=== PATIENT | female | born 1940 | race Caucasian/White ===

== ENCOUNTER 2017-09-16 16:03 | Observation (INO) | payer MEDICARE, OTHER ==
[~2017-09-16] VITALS: Ht 144.8 cm; Wt 44.2 kg
[2017-09-16 17:51] LABS: HEMATOCRIT 42.9 % (37.0-47.0); HEMOGLOBIN 13.6 g/dl (12.0-16.0); IMMATURE GRANULOCYTES 1.6 % (0.0-1.0); MEAN CELL VOLUME 81.6 fL CALC (80.0-100.0); MEAN CORPUSCULAR HGB 25.9 pG CALC (26.0-32.0); MEAN CORPUSCULAR HGB CONC 31.7 g/L CALC (32.0-36.0); NEUT# 5.24 thou/uL (2.00-7.15); RED BLOOD COUNT 5.26 mill/uL (4.20-5.60); RED CELL DISTRI WIDTH 14.7 % (11.5-15.5)
[2017-09-16 18:03] LABS: ANION GAP 18 (6-22 (CALC)); BUN 20 mg/dL (8-23); BUN/CREATININE RATIO 17 (12-20 (CALC)); CARBON DIOXIDE 21 mmol/l (22-30); CHLORIDE 104 mmol/l (95-108); CREATININE 1.2 mg/dL (0.5-1.0); GFR 43 ML/MIN (>=60 (CALC)); GFR FOR AFR.AMER. 52 ML/MIN (>=60 (CALC)); SODIUM 138 mmol/l (137-146)
[2017-09-16 19:15] VITALS: BP 149/82
[2017-09-16 23:35] VITALS: BP 152/93
[2017-09-17 04:06] VITALS: BP 160/90
[2017-09-17 05:51] LABS: HEMATOCRIT 42.8 % (37.0-47.0); HEMOGLOBIN 13.7 g/dl (12.0-16.0); MEAN CELL VOLUME 82.5 fL CALC (80.0-100.0); MEAN CORPUSCULAR HGB 26.4 pG CALC (26.0-32.0); RED BLOOD COUNT 5.19 mill/uL (4.20-5.60); RED CELL DISTRI WIDTH 14.8 % (11.5-15.5)
[2017-09-17 06:08] LABS: CHOLESTEROL HDL RATIO 3.4 (<4.4 (CALC)); CREATININE 1.1 mg/dL (0.5-1.0); MAGNESIUM 1.8 mg/dL (1.6-2.3); POTASSIUM 4.1 mmol/l (3.5-5.1)
[2017-09-17 08:17] VITALS: BP 178/91
[2017-09-17] MEDS ORDERED: CITALOPRAM10 MG PO (09:21)
[2017-09-17] MEDS ORDERED: B121000 MCG (09:21)
[2017-09-17] MEDS ORDERED: FERR SULFATE325 MG PO (09:21)
[2017-09-17 11:17] VITALS: BP 166/80
[2017-09-17 13:15] VITALS: BP 164/98
[2017-09-17 16:14] VITALS: BP 154/87
[2017-09-17 20:20] VITALS: BP 127/82
[2017-09-18] VITALS (7 sets, daily range): BP systolic 111–142; BP diastolic 70–81
[2017-09-18 05:10] LABS: URINE BILIRUBIN - DIPSTICK NEGATIVE (NEGATIVE); URINE BLOOD DIPSTICK NEGATIVE (NEGATIVE); URINE COLOR YELLOW; URINE GLUCOSE - DIPSTICK 100 mg/dL (NEGATIVE); URINE KETONE TRACE mg/dL (NEGATIVE); URINE LEUK ESTERASE NEGATIVE (NEGATIVE); URINE NITRITE - DIPSTICK NEGATIVE (Negative); URINE PROTEIN - DIPSTICK 100 mg/dL (NEG-TRACE); URINE UROBILINOGEN - DIPSTICK 0.2 E.U./dL (0.2)
[2017-09-18 05:12] LABS: URINE CLARITY CLEAR
[2017-09-18 05:23] LABS: CREATININE 1.2 mg/dL (0.5-1.0); POTASSIUM 4.4 mmol/l (3.5-5.1)
[2017-09-18 05:26] LABS: HEMATOCRIT 43.1 % (37.0-47.0); HEMOGLOBIN 13.8 g/dl (12.0-16.0); MEAN CELL VOLUME 82.9 fL CALC (80.0-100.0); MEAN CORPUSCULAR HGB 26.5 pG CALC (26.0-32.0); RED BLOOD COUNT 5.2 mill/uL (4.20-5.60); RED CELL DISTRI WIDTH 15.3 % (11.5-15.5)
[2017-09-18 05:42] LABS: URINE RBC 0-2 RBC/hpf (0-5); URINE SQUAMOUS EPITHELIAL CELL FEW EPI/hpf (0-FEW); URINE WBC 0-2 WBC/hpf (0-5)
[2017-09-19] VITALS (8 sets, daily range): BP systolic 111–164; BP diastolic 64–96
[2017-09-19] MEDS ORDERED: LEVEMIR100 UNIT/M SC (11:43)
[2017-09-19] MEDS ORDERED: LOPRESSOR25 MG PO (11:43)
[2017-09-19] MEDS ORDERED: GABAPENTIN100 MG PO (11:43)
[2017-09-19] MEDS ORDERED: LOSARTAN POTASS25 MG PO (11:43)
== END 2017-09-19 13:45 | disposition home or self-care (01) ==
LOC: ED 16:03 → ED-I 18:11 → ED 18:27 → MS2 18:28
PROVIDERS: Family Medicine; Nurse Practitioner Family; ADMIT Internal Medicine; ATTEND Internal Medicine
DX: I10 Essential (primary) hypertension (principal); E11.65 Type 2 diabetes mellitus with hyperglycemia; E11.649 Type 2 diabetes mellitus with hypoglycemia without coma; R26.89 Other abnormalities of gait and mobility; R00.0 Tachycardia, unspecified; E11.40 Type 2 diabetes mellitus with diabetic neuropathy, unspecified; Z79.4 Long term (current) use of insulin

== ENCOUNTER → 2018-04-14 | Outpatient (REF) ==
[~2018-04-14] MED LIST: B121000 MCG; CITALOPRAM10 MG PO; FERR SULFATE325 MG PO; GABAPENTIN100 MG PO; LEVEMIR100 UNIT/M SC; LOPRESSOR25 MG PO; LOSARTAN POTASS25 MG PO
== END | disposition home or self-care (01) | DRG 74 ==
LOC: LAB 14:14
PROVIDERS: ATTEND Internal Medicine
DX: E11.42 Type 2 diabetes mellitus with diabetic polyneuropathy (principal); I10 Essential (primary) hypertension; Z79.4 Long term (current) use of insulin

== ENCOUNTER 2020-04-16 21:38 | Inpatient (IN) | payer MEDICARE ==
[~2020-04-16] VITALS: Ht 144.8 cm; Wt 45.2 kg
--- NOTE | 2020-04-16 21:45 | NUR ---
PATIENT TO ROOM 13 VIA WHEELCHAIR. ASSISTED UP AND ONTO STRETCHER. UNDRESSED INTO A GOWN. PATIENT C/O HEADACHE ONGOING FOR 2 YEARS. STATES TODAY IT STARTED ON HER LEFT SIDE OF HER HEAD AND IS CURRENTLY ON THE RIGHT SIDE OF HER HEAD. STATES SHE HAS INTERMITTENT BLURRED VISION CHRONICALLY AND HAS SOME TODAY. ALSO STATES SHE USUALLY GETS AROUND WITH A WALKER BUT HAS HAD NO STRENGTH TO AMBULATE TODAY. PATIENT PLACED ON MONITOR. TRIAGE COMPLETED AT BEDSIDE. AWAITING MD GALAN.
--- NOTE | 2020-04-16 22:40 | NUR ---
PATIENT NIH COMPLETED. PATIENT ABLE TO SEE AND READ WORDS UP CLOSE, HOWEVER WHEN TRYING TO DO FINGER TO NOSE PATIENT HAD TROUBLE SEEING SCREENERS FINGER AND APPEARED TO HAVE TRACKING [place]. PATIENT UNABLE TO LIFT LEGS OFF THE BED. STATES SHE HAS NO STRENGTH. PATIENT VISION SEEMS CLEAR UP CLOSE BUT WHEN ITEMS ARE MOVED AWAY FROM HER SHE THEN SEES MULTIPLE ITEMS.
[2020-04-16 23:00] LABS: HEMATOCRIT 36.7 % (37.0-47.0); HEMOGLOBIN 11.1 g/dl (12.0-16.0); IMMATURE GRANULOCYTES 0.4 % (0.0-5.0); MEAN CORPUSCULAR HGB 25.4 pG CALC (26.0-32.0); MEAN CORPUSCULAR HGB CONC 30.2 g/dL CAL (32.0-36.0); NEUT# 9.23 thou/uL (2.00-7.15); RED BLOOD COUNT 4.37 mill/uL (4.20-5.60); RED CELL DISTRI WIDTH 16.4 % (11.5-15.5)
[2020-04-16 23:16] LABS: ALBUMIN 3.6 g/dL (3.2-5.0); BILIRUBIN, TOTAL 0.3 mg/dL (0.0-1.4); POTASSIUM 4.6 mmol/l (3.5-5.1); TOTAL PROTEIN 6.5 g/dL (6.3-8.2)
--- NOTE | 2020-04-16 23:54 | NUR ---
PT PLACED ON BEDPAN. VOIDED 100 CC ON BEDPAN. URINE SAMPLE SENT.
[2020-04-17] VITALS (8 sets, daily range): BP systolic 122–195; BP diastolic 42–101
[2020-04-17 00:38] LABS: URINE BILIRUBIN - DIPSTICK NEGATIVE (NEGATIVE); URINE BLOOD DIPSTICK TRACE-INTACT (NEGATIVE); URINE COLOR YELLOW; URINE GLUCOSE - DIPSTICK NEGATIVE (NEGATIVE); URINE KETONE NEGATIVE (NEGATIVE); URINE LEUK ESTERASE SMALL (NEGATIVE); URINE NITRITE - DIPSTICK NEGATIVE (Negative); URINE PROTEIN - DIPSTICK 100 mg/dL (NEG-TRACE); URINE SPECIFIC GRAVITY 1.015; URINE UROBILINOGEN - DIPSTICK 0.2 E.U./dL (0.2)
[2020-04-17 00:42] LABS: URINE BACTERIA MODERATE hpf; URINE EPITHELIAL CELLS MODERATE EPI/hpf (0-FEW); URINE WBC 50-100 WBC/hpf (0-5)
--- NOTE | 2020-04-17 02:00 | NUR ---
PT RESTING. NAD. NOTIFIED OF ELEVATED BP./
--- NOTE | 2020-04-17 02:12 | NUR ---
REPORT CALLED TO FIORELLA COTO//MED-SURG. WILL MEDICATE FOR BP AND THEN SEND THEM UP. ANOTHER PT GOING FIRST.
--- NOTE | 2020-04-17 02:15 | NUR ---
TELEPHONE REPORT TAKEN FROM Pasha CARL RN IN ER.
--- NOTE | 2020-04-17 02:43 | NUR ---
PT WAS MEDICATED FOR HTN. BP DOWN TO 151/71. HR 77. PT SLEEPING. NAD.
--- NOTE | 2020-04-17 03:00 | NUR ---
PT C/O HEADACHE 03/21. STATES TYLENOL DOESN'T WORK. NOTIFIED. ORDERS GIVEN
--- NOTE | 2020-04-17 03:15 | NUR ---
MORPHINE GIVEN. BP DOWN. UPDATED REPORT TO FLOOR TO [facility].
--- NOTE | 2020-04-17 03:25 | NUR ---
PT ARRIVES TO UNIT VIA STRETCHER ACCOMPANIED BY Pasha CRAL RN. ADMITTED TO ROOM 261. PT SLID FROM STRETCHER TO BED WITH ASSIST OF Pasha CARL RN AND Fareed SANDOVAL CNA. PHYSICAL ASSESMENT COMPLETE. ADMISSION COMPLETE. ORIENTED TO ROOM/CALL CORRAL/ LIGHTS/ TV. PLAN OF CARE REVIEWED. PT VERBALIZES UNDERSTANDING AND DENIES QUESTIONS AT THIS TIME. DENIES FURTHER NEEDS AT THIS TIME. ALL ITEMS WITHIN REACH. BED LOCKED IN LOW POSITION WITH BEDRAILS UP X2. CALL CORRAL WITHIN REACH, AGREES TO CALL PRN.
--- NOTE | 2020-04-17 03:25 | NUR ---
TO FLOOR VIA STRETCHER. POCKET MONITOR.
--- NOTE | 2020-04-17 05:23 | NUR ---
PT LAYING IN BED WITH EYES CLOSED, APPEARS TO BE SLEEPING, APPEARS COMFORTABLE AND IN NO DISTRESS. RESPIRATIONS REGULAR AND UNLABORED. ITEMS REMAIN WITHIN REACH, CALL CORRAL REMAINS WITHIN REACH. BED REMAINS LOCKED AND IN LOW POSITION WITH BEDRAILS UP X2.
--- NOTE | 2020-04-17 09:00 | NUR ---
PT IS AWAKE, ALERT, ORIENTED X 3. LUNGS CLEAR, RA. PT WITH HEADACHE, BUT DOES NOT WANT ANY MEDS FOR SAME. PT HAS BEEN TO CT AND BACK THIS MORNING.
--- NOTE | 2020-04-17 09:19 | NUR ---
PT note Patient is screened for PT intervention and she would benefit from functional assessment if medical agrees
[2020-04-17] MEDS ORDERED: VENTOLIN H108 MCG/AC IN (11:13)
--- NOTE | 2020-04-17 13:00 | NUR ---
PT WITHOUT CHANGE IN STATUS, NO DISTRESS NOTED. PT STATES HEADACHE X 2 YEARS, WHICH OCCASIONALLY CAUSES DOUBLE VISION, MANY TESTS RUN AT [facility] WITHOUT DEFINITIVE DIAGNOSIS.
--- NOTE | 2020-04-17 16:58 | NUR ---
PT GIVEN HYDRALAZINE FOR ELEVATED BLOOD PRESSURE. OTHERWISE, PT HAS HAD AN UNEVENTFUL AFTERNOON.
--- NOTE | 2020-04-17 19:03 | NUR ---
CALLED FOR AN UPDATE, REQUESTED RETURN CALL, BUT THE VOICE MAILBOX WAS FULL AND NO CONTACT WAS MADE. HER NUMBER IS [phone].
[2020-04-18] VITALS (7 sets, daily range): BP systolic 145–181; BP diastolic 77–102
--- NOTE | 2020-04-18 00:02 | NUR ---
PT LAYING IN BED WITH EYES CLOSED, APPEARS TO BE SLEEPING, APPEARS COMFORTABLE AND IN NO DISTRESS. RESPIRATIONS REGULAR AND UNLABORED. ITEMS REMAIN WITHIN REACH, CALL CORRAL REMAINS WITHIN REACH. BED REMAINS LOCKED AND IN LOW POSITION WITH BEDRAILS UP X2. WILL CONTINUE TO MONITOR.
--- NOTE | 2020-04-18 04:02 | NUR ---
PT RESTING IN BED, NO SIGNS OF DISTRESS NOTED, RESP EVEN AND UNLABORED. PT VOICES NO NEEDS OR COMPLAINTS AT THIS TIME. CALL LIGHT IN REACH; WILL CONTINUE TO MONITOR.
[2020-04-18 06:45] LABS: HEMATOCRIT 35.7 % (37.0-47.0); HEMOGLOBIN 10.8 g/dl (12.0-16.0); MEAN CELL VOLUME 83.8 fL CALC (80.0-100.0); MEAN CORPUSCULAR HGB 25.4 pG CALC (26.0-32.0); MEAN CORPUSCULAR HGB CONC 30.3 g/dL CAL (32.0-36.0); RED BLOOD COUNT 4.26 mill/uL (4.20-5.60); RED CELL DISTRI WIDTH 16.5 % (11.5-15.5)
[2020-04-18 06:57] LABS: BILIRUBIN, TOTAL 0.2 mg/dL (0.0-1.4); CREATININE 2.1 mg/dL (0.5-1.0); POTASSIUM 4.5 mmol/l (3.5-5.1); TOTAL PROTEIN 5.8 g/dL (6.3-8.2)
--- NOTE | 2020-04-18 09:00 | NUR ---
PT SEEN AWAKE, ALERT, ORIENTED X 3, KYPHOSIS EVIDENT. PT ABLE TO EAT HER MEALS WITH SOME ASSIST. PT DID HAVE BLOOD DRAWN THIS AM, LAB CALLED TO SAY BS 33. PT PROVIDED WITH OJ AND AMP OF D50, LATER SEEN 251. PT WAS NOT SYMPTOMATIC DURING THE EPISODE. LW IV SITE INFUSES NS AT 50 ML/HR.
--- NOTE | 2020-04-18 13:00 | NUR ---
PT STATES THAT SHE FEELS MUCH BETTER TODAY. SHE STATES THAT SHE IS NOT HAVING ANY MORE DOUBLE VISION OR HEADACHE YESTERDAY.
--- NOTE | 2020-04-18 15:25 | NUR ---
PT ENCOURAGED PATIENT TO PARTICIPATE WITH BED MOBILITY, HOWEVER, SHE STILL HAS DIFFICULTY MOVING DUE TO SEVERE WEAKNESS. SUPINE <> SIT X MAX-A X 2. [id number] X 2, MAX-A X 2. PATIENT STILL UNABLE TO STAND >5 SECS DUE TO WEAKNESS, POOR BALANCE, AND EQUINUS FOOT DEFORMITY ON BLE. WHILE IN SITTING POSITION, PATIENT COMPLETED 10 REPS X 1 SET ON EACH LE: KNEE RAISES AND KNEE EXTENSION. PT ATTEMPTED TO REPOSITION PATIENT TO PREVENT PRESSURE SORES, HOWEVER, SHE COMPLAINS OF R SHOULDER AND KNEES PAIN IN SIDELYING POSITION. PT SPOKE TO THE NURSE REGARDING BED POSITIONING FOR PRESSURE SORE AND EGG-CRATE CRATE BED FOR PRESSURE SORE PREVENTION. AMPAC = 6
--- NOTE | 2020-04-18 16:21 | NUR ---
PT SEEN BY PHYSICAL THERAPY THIS AFTERNOON, WHO WORKED WITH HER FOR ALMOST HALF AN HOUR, PT ALSO SEEN BY WOOL WASHER FEEDER, DIET CHANGED TO ACCOUNT FOR HER INABILITY TO FEED HERSELF R/T SHAKING. ENSURE TO BE PROVIDED EACH TRAY, ALSO.
--- NOTE | 2020-04-18 16:40 | NUR ---
S: ANDRADE LUCIO is a 79 F who presents with Sepsis. She has a history of Coronary artery disease, Atrial fibrillation, Sick sinus syndrome, Osteoarthiritis, Mitral valve regurgitation. All medications in patient's chart were reviewed. O: VS: BP 97/63 mmHg, P 86 bpm, RR 18 breats/min, T 97.5 F W 90.83 kg, HT 60 in, Scr= 0.7 mg/dL, CrCl= 72.5 ml/min A: Blood culture is pending. P: Patient is on Azaztam IV 2 g Q8H. Vancomycin ordered for pharmacy to dose. Trough levels: 17 ug/mL Continue Vancomycin 1000 mg IV Q8H. Vancomycin trough is drawn before the 4th dose on 04/19/20 at 1400. Vancomycin goal trough is between 15-20 mcg/ml. Pharmacy will follow and or advise on antibiotics use as needed.
--- NOTE | 2020-04-18 19:30 | NUR ---
PATIENT RESTING IN BED AT THIS TIME-SITTING UP IN BED. JUST FINISHED EATING HER DESSERT FROM DINNER. AWAKE AND ALERT WITH NO COMPLAINTS AT THIS TIME. TELE MONITOR IN PLACE. SALINE LOCK TO LEFT WRIST INTACT-APPEARS HEALTHY AT THIS TIME. SAFETY PRECAUTIONS REINFORCED. CALL LIGHT IN REACH. WILL CONT TO MONITOR.
--- NOTE | 2020-04-18 22:00 | NUR ---
PATIENT RESTING IN BED-IV SITE TO LEFT WRIST FOUND SWOLLEN AND PAINFUL. IV SITE D/C'ED WITH CATH INTACT. NEW IV SITE STARTED TO RIGHT AC-#24 WITH GOOD BLOOD RETURN. IVF PATENT AND INFUSING ORDERED. PATIENT INCONT OF URINE. PATIENT PROVIDED WITH PERICARE AND TURNED AND REPOSITIONED ON RIGHT SIDE. PATIENT TAKING PO FLUIDS WHEN OFFERED. SAFETY PRECAUTIONS REINFORCED. CALL LIGHT IN REACH. WILL CONT TO MONITOR.
[2020-04-19] VITALS (9 sets, daily range): BP systolic 128–171; BP diastolic 66–92
--- NOTE | 2020-04-19 00:08 | NUR ---
PATIENT RESTING IN BED-BP-179/102, HR-114. APRESOLINE 10MG IVP GIVEN FOR HTN. REPOSITIONED ON BACK. IVF PATENT AND INFUSING VIA RIGHT AC SITE-REMAINS HEALTHY AT THIS TIME. PATIENT WITH NO COMPLAINTS AT THIS TIME. SAFETY PRECAUTIONS REINFORCED. CALL LIGHT IN REACH. WILL CONT TO MONITOR.
--- NOTE | 2020-04-19 00:35 | NUR ---
RECIEVED CALL FROM ER THAT HR IS ELEVATED AT 130'S-RESPONDED TO PT ROOM- PATIENT WITH EMESIS BAG. STATES THAT SHE FEELS LIKE SHE HAS TO "THROW-UP" PATIENT MEDICATED WITH ZOFRAN 4MG IVP FOR NAUSEA. COOL CLOTH APPLIED TO PATIENT FOREHEAD. CALL LIGHT IN REACH-WILL CONT TO MONITOR.
--- NOTE | 2020-04-19 02:45 | NUR ---
PATIENT RESTING IN BED-STILL NAUSEATED. BP-151/80 HR-136. CALL PLACED TO DR. CANTU REGUARDING ELEVATED HR-LEFT MESSAGE. AWAITING CALL BACK.
--- NOTE | 2020-04-19 04:40 | NUR ---
PATIENT RESTING IN BED-CONT TO C/O NAUSEA. HR REMAINS [id number]. ANOTHER CALL P[LACED TO DR. CANTU. NEW ORDERS RECIEVED FOR METOPROLOL 25MG PO. WILL MEDICATE SOON PROFILED ON EMAR.
--- NOTE | 2020-04-19 05:30 | NUR ---
PATIENT RESTING IN BED-MEDICATED WITH LOPRESSOR 25MG PO ORDERED FOR ST. IVF PATENT AND INFUSING VIA RAC SITE. SITE REMAINS HEALTHY. INCONT OF MODERATE AMT OF URINE. PERICARE DONE-PATIENT TURNED AND REPOSITIONED ON SIDE. CALL LIGHT IN REACH. WILL CONT TO MONITOR.
--- NOTE | 2020-04-19 06:25 | NUR ---
PATIENT RESTING IN BED WITH HOB SLIGHTLY ELEVATED AND POSITIONED ON RIGHT SIDE. HR-97 AT THIS TIME. PATIENT STATES THAT SHE IS FEELING BETTER. SAFETY PRECAUTIONS REINFORCED. CALL LIGHT IN REACH. WILL CONT TO MONITOR.
--- NOTE | 2020-04-19 07:00 | NUR ---
REPORT RECEIVED FROM FIORELLA OROSCO;PT APPEARS TO BE SLEEPING IN SEMI FOWLERS POSITION;RESPIRATIONS EVEN AND UNLABORED ON RA;NO S/S OF DISTRESS NOTED;IV FLUIDS INFUSING WITH EASE PER ORDER;TELE MONITORING IN PLACE;ALL SAFETY PRECAUTIONS IN PLACE WITH BED IN THE LOWEST POSITION AND CALL LIGHT IN REACH;WILL CONTINUE TO MONITOR
--- NOTE | 2020-04-19 07:59 | NUR ---
LAB AT BEDSIDE
--- NOTE | 2020-04-19 08:00 | NUR ---
PT RESTING IN SEMI FOWLERS POSITION,A&O X3;VS OBTAINED AND ASSESSMENT COMPLETED;PT DENIES ANY CURRENT PAIN OR DISCOMFORTS,PAIN SCALE AND REPORTING EDUCATED;RESPIRATIONS EVEN AND UNLABORED ON RA;ABDOMEN SOFT ON PALPATION AND ACTIVE IN ALL 4 QUADRANTS;WEAK PEDAL PULSES;SKIN INTACT;TELE MONITORING IN PLACE;#24G TO RAC INFUSING NS @ 50ML/HR,SITE APPEARS HEALTHY;ACCUCHECK 298;PT DENIES ANY CURRENT NEEDS AT THIS TIME AND IS ENCOURAGED TO CALL FOR ASSISTANCE IF NEEDED;FALL PRECAUTIONS IN PLACE WITH BED IN THE LOWEST POSITION;CALL LIGHT IN REACH;WILL CONTINUE TO MONITOR
--- NOTE | 2020-04-19 08:12 | NUR ---
AT BEDSIDE DISCUSSING POC.
[2020-04-19 08:18] LABS: HEMATOCRIT 30.2 % (37.0-47.0); HEMOGLOBIN 9.1 g/dl (12.0-16.0); IMMATURE GRANULOCYTES 0.4 % (0.0-5.0); MEAN CELL VOLUME 84.6 fL CALC (80.0-100.0); MEAN CORPUSCULAR HGB 25.5 pG CALC (26.0-32.0); MEAN CORPUSCULAR HGB CONC 30.1 g/dL CAL (32.0-36.0); NEUT# 9.73 thou/uL (2.00-7.15); RED BLOOD COUNT 3.57 mill/uL (4.20-5.60)
[2020-04-19 08:41] LABS: POTASSIUM 5.5 mmol/l (3.5-5.1)
--- NOTE | 2020-04-19 09:16 | NUR ---
NOTIFIED DR. SHEN ABOUT CONSULT . DR Mikey SHEN VERBALIZE UNDERSTANDING .
--- NOTE | 2020-04-19 09:25 | NUR ---
PT REPORTS NAUSEA AND REQUESTS PRN ANTIEMETIC,PT MEDICATED WITH PRN ZOFRAN 4MG IVP AT THIS TIME;WILL CONTINUE TO MONITOR FOR EFFECTIVENESS
--- NOTE | 2020-04-19 11:20 | NUR ---
PT RESTING IN SEMI FOWLERS POSITION;RESPIRATIONS EVEN AND UNLABORED ON RA;PT DENIES ANY CURRENT PAIN AND REPORTS NAUSEA HAS SUBSIDED AT THIS TIME;TELE MONITORING IN PLACE;BP CURRENTLY 173/86 HR 94, PT MEDICATED WITH PRN LOPRESSOR 25MG PO PER D.CARTEE ANRP;IV FLUIDS CONTINUE TO INFUSE WITH EASE PER ORDER;ACCUCHECK 288, PT MEDICATED WITH NOVOLOG 3 UNITS SQ BY FIORELLA SHELTON;PT DENIES ANY ADDITIONAL NEEDS AND IS ENCOURAGED TO CALL FOR ASSISTANCE IF NEEDED;CALL LIGHT IN REACH;WILL CONTINUE TO MONITOR
--- NOTE | 2020-04-19 12:12 | NUR ---
BP RE-CHECK 128/72;WILL CONTINUE TO MONITOR
--- NOTE | 2020-04-19 14:26 | NUR ---
PHYSICAL THERAPY AT BEDSIDE WORKING WITH PT.
--- NOTE | 2020-04-19 15:09 | NUR ---
AAROME ON BLE: SLR, HIP ABDUCTION, HEEL SLIDES, ANKLE DF-PF X 10 REPS X 1 SET ON EACH MOTIONS, BILATERALLY. BED MOBILITY (SUPINE TO SIR = MAX-A, SIT TO SUPINE = MIN-A). STATIC SITTING BALANCE AND TOLERANCE ~5 MINS, MOD-I. AMN-UA-MRRLG X MOD-A X 2. GAIT TRAINING USING WALKER, 10 FEET, MIN-A/MOD-A X 1. PATIENT DEMONSTRATED DOWAGER'S HUMP, VERY SLOW PACE, DECREASED STEP LENGTH AND STRIDE. PATIENT REPORTED DIZZINESS AND SOB AFTER THE EXERCISES/ACTIVITIES. PT RELAYED THESE SYMPTOMS TO RN IN-CHARDE AND PATIENT'S REQUEST OF INHALER. RN STATED THAT PATIENT DOES NOT HAVE INHALER IN HER LIST OF MEDICATIONS. PATIENT SHOWED IMPROVEMENTS TO STRENGTH AND FUNCTION TODAY. AMPAC = 11
--- NOTE | 2020-04-19 15:58 | NUR ---
PT APPEARS TO BE SLEEPING IN SEMI FOWLERS POSITION;RESPIRATIONS EVEN AND UNLABORED ON RA;NO S/S OF DISTRESS NOTED;IV FLUIDS CONTINUE TO INFUSE WITH EASE PER ORDER;TELE MONITORING IN PLACE;ASSESSMENT REMAINS UNCHANGED AT THIS TIME;CALL LIGHT IN REACH;WILL CONTINUE TO MONITOR
--- NOTE | 2020-04-19 18:52 | NUR ---
IV SITE INFILTARTED,SITE REMOVED WITH CATHETER INTACT;NEW #24G STARTED TO LEFT HAND ON FIRST ATTEMPT BY FIORELLA SHELTON;PT TOLERATED WELL;WILL CONTINUE TO MONITOR
--- NOTE | 2020-04-19 19:34 | NUR ---
PATIENT RESTING IN BED AT THIS TIME WITH HOB ELEVATED-AWAKE ALERT AND ORIENTEDX3 AND STATES THAT SHE IS FEELING BETTER TONIGHT THAN LAST NIGHT. COLOR IS PALE. SKIN IS WARM AND DRY-SKIN IS FRAGILE AND THIN.TELE MONITOR IN PLACE. IV SITE TO LEFT WRIST INTACT AND IVF NS PATENT AND INFUSING AT 50CC/HR. SITE APPEARS HEALTHY AT THIS TIME. LUNGS ARE CLEAR. ABD IS SOFT WITH BS+. SAFETY PRECAUTIONS REINFORCED. CALL LIGHT IN REACH. WILL CONT TO MONITOR.
--- NOTE | 2020-04-19 21:23 | NUR ---
PATIENT INCONT OF MODERATE AMT OF YELLOW URINE-BREIF CHANGED AND PERICARE PROVIDED. TURNED AND REPOSITIONED ON RIGHT SIDE. ACCU-CHECK WAS 269 TONIGHT AND PATIENT COVERED WITH 3UNITS OF NOVALOG SQ PER SS COVERAGE SCALE. HS SNACK PROVIDED. NEW BAG OF NS HUNG AND INFUSING VIA LEFT WRIST SITE AT 50CC/HR. SITE REMAINS HEALTHY. SAFETY PRECAUTIONS REINFORCED. CALL LIGHT IN REACH. WILL CONT TO MONITOR.
--- NOTE | 2020-04-19 23:54 | NUR ---
PATIENT RESTING IN BED WITH HOB SLIGHTLY ELEVATED AND EYES CLOSED. RESP ARE EVEN AND UNLABORED-APPEARS SLEEPING IN NO ACUTE DISTRESS. TELE MONITOR IN PLACDE. IVF PATENT AND INFUSING VIA LEFT HAND SITE AT 50CC/HR. SITE REMAINS HEALTHY AT THIS TIME. CALL LIGHT IN REACH. WILL CONT TO MONITOR.
[2020-04-20] VITALS (9 sets, daily range): BP systolic 142–198; BP diastolic 70–93
--- NOTE | 2020-04-20 02:00 | NUR ---
PATIENT CALLED AND STATES THAT SHE NEEDS TO HAVE BM. PATIENT PLACED ON BED PAD AND FIRST HAD SMALL SOFT BROWN STOOL FOLLOWED BY ANOTHER LARGE SOFT BROWN STOOL. PERICARE PROVIDED AND PATIENT TURNED AND REPOSITIONED ON HER SIDE. SAFETY PRECAUTIONS REINFORCED. CALL LIGHT IN REACH. WILL CONT TO MONITOR.
--- NOTE | 2020-04-20 04:01 | NUR ---
PATIENT RESTING IN BED AT THIS TIME WITH HOB ELEVATED AND EYES CLOSED. RESP ARE EVEN AND UNLABORED AND APPEARS SLEEPING. IVF PATENT AND INFUSING VIA LEFT HAND SITE. STIE REMAINS HEALTHY AT THIS TIME. CALL LIGHT IN REACH. WILL CONT TO MONITOR.
--- NOTE | 2020-04-20 04:30 | NUR ---
BP ELEVATED 198/93, HR-88. PATIENT MEDICATED WITH APRESOLINE 10MG IVP ORDERED FOR HTN. CALL LIGHT IN REACH. WILL CONT TO MONITOR.
--- NOTE | 2020-04-20 07:19 | NUR ---
PT RESTING IN BED ON HER LEFT SIDE. PT REQUESTING TO BE REPOSITIONED, TERRAZZO MECHANIC HELPER ASSISTED BUSINESS COMMUNICATIONS INSTRUCTOR TO REPOSITION PT, NO SIGNS OF DISTRESS NOTED, RESP EVEN AND UNLABORED. PT A+Ox3, DISCUSSED POC, VITALS OBTAINED. BP ELEVATED, PT MEDICATED PER MAR. PT OBEYS COMMANDS. ASSESSMENT COMPLETED. PT STATES SHE IS WEAK AND DOES NOT WANT TO EAT AT THIS TIME. CALL LIGHT IN REACH, CONTINUE TO MONITOR.
[2020-04-20 08:02] LABS: HEMATOCRIT 32.2 % (37.0-47.0); HEMOGLOBIN 9.7 g/dl (12.0-16.0); IMMATURE GRANULOCYTES 0.5 % (0.0-5.0); MEAN CELL VOLUME 85.2 fL CALC (80.0-100.0); MEAN CORPUSCULAR HGB 25.7 pG CALC (26.0-32.0); MEAN CORPUSCULAR HGB CONC 30.1 g/dL CAL (32.0-36.0); NEUT# 9.27 thou/uL (2.00-7.15); RED BLOOD COUNT 3.78 mill/uL (4.20-5.60); RED CELL DISTRI WIDTH 16.8 % (11.5-15.5)
[2020-04-20 08:11] LABS: ALBUMIN 3.1 g/dL (3.2-5.0); CREATININE 1.9 mg/dL (0.5-1.0); POTASSIUM 4.7 mmol/l (3.5-5.1); TOTAL PROTEIN 5.9 g/dL (6.3-8.2)
[2020-04-20 08:35] LABS: BILIRUBIN, TOTAL 0.3 mg/dL (0.0-1.4)
[2020-04-20 08:43] LABS: ALBUMIN 3.1 g/dL (3.2-5.0); CREATININE 1.9 mg/dL (0.5-1.0); POTASSIUM 4.9 mmol/l (3.5-5.1)
--- NOTE | 2020-04-20 10:03 | NUR ---
AND ARAVIND AT BEDSIDE TO DISCUSS POC
--- NOTE | 2020-04-20 11:28 | NUR ---
PT RESTING IN BED BEING FED BY LEARNING AND DEVELOPMENT INTERN, PT STATES SHE IS NAUSEOUS AND WOULD RATHER NOT EAT. DISCUSSED INCREASING OF METOPROLOL WITH PT, PT MEDICATED PER MAR. NO SIGNS OF DISTRESS NOTED, RESP EVEN AND UNLABORED. ENSURE GIVEN. CALL LIGHT IN REACH,CONTINUE TO MONITOR.
--- NOTE | 2020-04-20 13:13 | NUR ---
PT RESTING IN BED, CHANGED BY LICENSED SURVEYOR, DISCUSSED COMPRESSION STOCKINGS AND ATTEMPTED TO APPLY TO PT, PT DECLINED STATES "THEY ARE TOO TIGHT". AIRCRAFT DESIGNER NOTIFIED. CALL LIGHT IN REACH CONTINUE TO MONITOR.
--- NOTE | 2020-04-20 17:03 | NUR ---
PT RESTING IN BED, DISCUSSED NOVOLOG, PT VOICES NO NEEDS OR COMPLAINTS AT THIS TIME. PT STATES SHE DOES NOT WANT TO EAT DINNER THAT SHE PREFERS "SOMETHING LIGHT" REQUESTING DAWOOD. DAWOOD PROVIDED. FOLDER STITCHER OPERATOR TO ASSIST PT IN EATING. CALL LIGHT IN REACH,CONTINUE TO MONITOR.
--- NOTE | 2020-04-20 20:40 | NUR ---
PT MEDICATED ORDERS PROVIDE. NO S/O DISTRESS, PT DENIES ANY OTHER NEEDS. ASSESSMENT COMPLETED AT THIS TIME. PT APPEARS VERY WEAK IP [place], ABLE TO MOVE EXTREMETIES, BUT LEGS DRIFT TO THE BED. PT LOCX3.
--- NOTE | 2020-04-20 21:25 | NUR ---
PT TAKEN OFF BEDPAN AT THIS TIME. ONE LARGE STOOL OUTPUT.
[2020-04-21] VITALS: BP 161/85
--- NOTE | 2020-04-21 00:18 | NUR ---
PT SLEEPING, NO S/O DISTRESS NOTED. IVF RUNNING TO , SITE APPEARS HEALTHY. CALL LIGHT W/IN REACH AND LIGHTS OFF.
[2020-04-21 04:00] VITALS: BP 171/87
[2020-04-21 04:48] LABS: HEMATOCRIT 28.6 % (37.0-47.0); HEMOGLOBIN 8.6 g/dl (12.0-16.0); IMMATURE GRANULOCYTES 0.5 % (0.0-5.0); MEAN CELL VOLUME 85.4 fL CALC (80.0-100.0); MEAN CORPUSCULAR HGB 25.7 pG CALC (26.0-32.0); MEAN CORPUSCULAR HGB CONC 30.1 g/dL CAL (32.0-36.0); NEUT# 6.74 thou/uL (2.00-7.15); RED BLOOD COUNT 3.35 mill/uL (4.20-5.60); RED CELL DISTRI WIDTH 16.8 % (11.5-15.5)
--- NOTE | 2020-04-21 04:51 | NUR ---
PT SLEEPING SOUNDLY, TV AND LIGHTS ON LOW. CALL LIGHT AT BEDSIDE. NO S/O DISTRESS NOTED.
--- NOTE | 2020-04-21 05:00 | NUR ---
JAZMÍN REPORTED THAT PTS BP IS ELEVATED, WILL MEDICATE ORDERS PROVIDE.
[2020-04-21 05:20] LABS: CREATININE 2.1 mg/dL (0.5-1.0); POTASSIUM 4.5 mmol/l (3.5-5.1)
--- NOTE | 2020-04-21 05:24 | NUR ---
PT MEDICATED FOR ELEVATED BP AND REPOSITIONED IN BED FOR COMFORT. DENIES ANY OTHER NEEDS AT THIS TIME.
--- NOTE | 2020-04-21 05:58 | NUR ---
PT C/O FEELING SICK TO HER STOMACH. EMESIS BAG PROVIDED AND PT MEDICATED FOR NAUSEA.
--- NOTE | 2020-04-21 07:00 | NUR ---
SHIFT CHANGE REPORT, PT AWAKE ALERT AND ORIENTED, C/O BEING UNABLE TO BREATHE, O2 @ 1L VIA NC APPLIED, IVF INFUSING, TELE MONITOR IN PLACE, CALL CORRAL IN REACH AND BED IN LOWEST POSITION, WILL CONTINUE TO MONITOR.
[2020-04-21 07:32] VITALS: BP 160/64
[2020-04-21 10:35] VITALS: BP 140/71
--- NOTE | 2020-04-21 12:23 | NUR ---
RESTING IN BED, STATED BREATHING BETTER AT THIS TIME WITH O2 @ 1L VIA NC IN PLACE, ALL NEEDS MET, ASSISTED WITH FEEDING.
[2020-04-21 15:00] VITALS: BP 157/74
--- NOTE | 2020-04-21 16:00 | NUR ---
RESTING IN BED WATCHING TV, ALL NEEDS ADDRESSED, CALL CORRAL IN REACH.
[2020-04-21 19:00] VITALS: BP 151/77
--- NOTE | 2020-04-21 20:36 | NUR ---
PT MEDICATED ORDERS PROVIDE. ASSESSMENT COMPLETED AT THIS TIME. NO S/O DISTRESS NOTED. PT DENIES ANY OTHER NEEDS, BUT ENCOURAGED TO CALL NEEDS ARISE. CALL LIGHT AT SIDE.
--- NOTE | 2020-04-21 22:40 | NUR ---
PT SLEEPING, NO S/O DISTRESS NOTED.
[2020-04-22] VITALS: BP 162/77
--- NOTE | 2020-04-22 00:05 | NUR ---
RECONCILIATION MANAGER IN W/PT OBTAINING V/S. NO S/O DISTRESS. PT WAS SLEEPING WE ENTERED THE ROOM. CALL LIGHT IS W/IN REACH. PT DENIES REPOSITIONING AT THIS TIME.
--- NOTE | 2020-04-22 02:59 | NUR ---
PT CLEANED OF INCONTINENT URINE AND REPOSITIONED IN THE BED. PT REPORTS HAVING BEEN SLEEPING GOOD. ASSISTED PT DRINKING PO FLUIDS. DENIES ANY OTHER NEEDS AND REMINDED TO CALL LIGHT, LEFT IN HAND WITH BED IN LOWEST POSITION.
[2020-04-22 04:00] VITALS: BP 166/79
--- NOTE | 2020-04-22 04:09 | NUR ---
PT MEDICATED FOR ELEVATED BP. LAB IN WITH PT.
[2020-04-22 05:07] LABS: HEMATOCRIT 30.1 % (37.0-47.0); HEMOGLOBIN 8.8 g/dl (12.0-16.0); IMMATURE GRANULOCYTES 0.5 % (0.0-5.0); MEAN CELL VOLUME 87.5 fL CALC (80.0-100.0); MEAN CORPUSCULAR HGB 25.6 pG CALC (26.0-32.0); MEAN CORPUSCULAR HGB CONC 29.2 g/dL CAL (32.0-36.0); NEUT# 8.55 thou/uL (2.00-7.15); RED BLOOD COUNT 3.44 mill/uL (4.20-5.60); RED CELL DISTRI WIDTH 16.8 % (11.5-15.5)
[2020-04-22 05:33] LABS: ALBUMIN 2.9 g/dL (3.2-5.0)
[2020-04-22 05:40] VITALS: BP 149/76; BP 159/76
[2020-04-22 07:52] VITALS: BP 138/54
--- NOTE | 2020-04-22 07:52 | NUR ---
RECIEVED REPORT FROM FIORELLA MILLAN. PT SLEEPING IN SEMI FOWLERS POSITION UPON ENTERING ROOM. PT EASY TO AWAKEN. INTRODUCED SELF TO PT AND DISCUSSED POC. ASSESSMENT AND VITALS COMPLETED AT THIS TIME. BP 138/54, HR 95, O2 98% ON 1L NC. PT STATED " I WANT TO KEEP THE OXYGEN ON BECAUSE I GET SOB SOMETIMES." LUNG SOUNDS ARE CLEAR. HEART RHYTHM IS NORMAL. BOWEL SOUNDS ARE ACTIVE, LAST REORTED BM 04/21/2020. RADIAL AND PEDAL PULSES ARE WEAK. PT APPEARS TO BE VERY WEAK. #22G IN LH RUNNING WITH IVF PER ORDER, SITE APPEARS HEALTHY AND PATENT. PT COMPLAINS OF HEADACHE, WRITTER SUGGESTED TYLENOL. PT REFUSED. ICE PACK OFFERED, PT REFUSED. PT DENIES ANY OTHER PAINS OR DISCOMFORTS AT THIS TIME. ALL SAFTEY PRECAUTIONS ARE IN PLACE WITH CALL LIGHT IN REACH. ALL SAFETY PRECAUTIONS ARE IN PLACE WITH CALL LIGHT IN REACH. WILL CONTINUE TO MONITOR.
[2020-04-22 11:08] VITALS: BP 142/78
--- NOTE | 2020-04-22 11:52 | NUR ---
PT REQUEST TO TALK TO DAUGHTER ABOUT GOING HOME OR TO REHAB. ATTEMPT TO CALL DAUGHTER. NO ANSWER. NO MESSAGE LEFT DUE TO [employer] MAIL BOX NOT BEING SET UP. -
[2020-04-22] MEDS ORDERED: LOPRESSOR 550 MG/TAB PO (12:10)
--- NOTE | 2020-04-22 12:29 | NUR ---
PT RESTING IN SEMI FOWLERS POSITION UPON ENTERING ROOM. PT REQUESTED FOR INSURE TO BE OPENED. ENSURE OPENED WITH STRAW ON BESIDE TABLE. RESPRIATIONS ARE EVEN AND UNLABORE DWIHT NO SIGNS OF DISTRESS NOTED. IV FLUIDS RUNNING PER ORDER, SITE APPEARS HEALTHY AND PATENT. PT DENIES OF ANY PAIN OR DISCOMFORTS AT THIS TIME. ALL SFAETY PRECAUTIONS ARE IN PLACE WITH CALL LIGHT IN REACH. WILL CONTINUE TO MONITOR
--- NOTE | 2020-04-22 14:13 | NUR ---
PT AT BEDSIDE WORKING WITH PT -
--- NOTE | 2020-04-22 14:55 | NUR ---
PT NOTE Patient in semi-fowlers position as entered room. She stated she had gotten up to go to bathroom with nurses help and felt tired but did agree to execute bed exercises. Miss Menchaca executed 10 x 2 ankle pumps, clockwise/ counter clockwisw ankle movements, seated hip abduction/adduction x 10 bilaterally, heel slides x 10 bilaterally (MIN A). Performed gastroc/ soleus strtching to lower extremities x 10 sec holds x 3 reps. Patiient was seated in semi-fowlers position as exited room w/ tray table and call pulido by side. AMPAC 6 score remains unchanged 11
[2020-04-22 15:15] VITALS: BP 156/77
--- NOTE | 2020-04-22 15:58 | NUR ---
PT EDUCATED ON DISCHARGE INSTRUCTIONS . PT VERBAILZED UNDERSTANDING. IV REMOVED WITH CATHATER STILL INTACT. PT TOLERATED WELL. AWAITING FOR TRANSPORTATION SCHEDULED AT 1630. ALL SFAETY PRECAUTIONS REMAIN IN PLACE WITH CALL LIGHT IN REACH. WILL CONTINUE TO MONITOR
--- NOTE | 2020-04-22 18:00 | NUR ---
Discharge instructions given. Patient verbalizes understanding of same. [facility]. All belongings sent with pt. PT DISCHARGE VIA MEDICAL TRANSPORT TO [facility] IN STABLE CONDITION. PT LEFT WITH ALL DISCHARGE PAPERWORK AND DISCHARGE INSTRUCTIONS.
--- NOTE | 2020-04-22 18:26 | NUR ---
REPORT CALLED TO FIORELLA MORALES AT [facility]
== END 2020-04-22 18:00 | DRG 683 ==
LOC: ED 21:38 → ED-I 22:04 → ED 22:04 → ED-I 23:46 → ED 04-17 00:36 → MS2 04-17 00:37
PROVIDERS: Emergency Medicine; Internal Medicine; Internal Medicine Nephrology; Nurse Practitioner; Nurse Practitioner Family; Physician Assistant; ADMIT Internal Medicine; ATTEND Internal Medicine
DX: N17.9 Acute kidney failure, unspecified (principal); N39.0 Urinary tract infection, site not specified; E87.1 Hypo-osmolality and hyponatremia; E87.2 Acidosis; E86.0 Dehydration; I12.9 Hypertensive chronic kidney disease with stage 1 through stage 4 chronic kidney disease, or unspecified chronic kidney disease; E11.22 Type 2 diabetes mellitus with diabetic chronic kidney disease; N18.4 Chronic kidney disease, stage 4 (severe); E87.5 Hyperkalemia; E11.649 Type 2 diabetes mellitus with hypoglycemia without coma; D63.1 Anemia in chronic kidney disease; J45.909 Unspecified asthma, uncomplicated; R00.0 Tachycardia, unspecified; Z86.79 Personal history of other diseases of the circulatory system; Z79.4 Long term (current) use of insulin; Z20.828 Contact with and (suspected) exposure to other viral communicable diseases

== ENCOUNTER 2020-08-11 02:33 | Emergency (ER) | payer MEDICARE ==
[~2020-08-11] VITALS: Ht 144.8 cm; Wt 43.2 kg
[~2020-08-11 02:33] MED LIST changes: +LOPRESSOR 550 MG/TAB PO; +VENTOLIN H108 MCG/AC IN
[2020-08-11] MEDS ORDERED: LOPRESSOR25 M1 PO (03:15)
[2020-08-11] MEDS ORDERED: VENTOLIN H108 MCG/AC (03:15)
[2020-08-11] MEDS ORDERED: TRESIBA FL100 UNIT/M SC (03:17)
[2020-08-11] MEDS ORDERED: ENALAPRIL20 MG PO (03:19)
[2020-08-11] MEDS ORDERED: NORVASC5 M1 PO (03:20)
[2020-08-11 05:14] VITALS: BP 150/66
[2020-08-11] MEDS ORDERED: ALBENZA200 MG PO (05:32)
[2020-08-11] MEDS ORDERED: TRAMADOL HYDROC50 MG PO (05:32)
[2020-08-11 05:38] LABS: URINE BILIRUBIN - DIPSTICK NEGATIVE (NEGATIVE); URINE BLOOD DIPSTICK TRACE-INTACT (NEGATIVE); URINE COLOR YELLOW; URINE GLUCOSE - DIPSTICK 100 mg/dL (NEGATIVE); URINE KETONE NEGATIVE (NEGATIVE); URINE NITRITE - DIPSTICK NEGATIVE (Negative); URINE PH 5.5 (4.5-8.0); URINE PROTEIN - DIPSTICK 30 mg/dL (NEG-TRACE); URINE SPECIFIC GRAVITY 1.015; URINE UROBILINOGEN - DIPSTICK 0.2 E.U./dL (0.2)
[2020-08-11 05:57] LABS: URINE BACTERIA MANY hpf; URINE LEUK ESTERASE MODERATE (NEGATIVE); URINE SQUAMOUS EPITHELIAL CELL FEW EPI/hpf (0-FEW)
== END 2020-08-11 05:47 | disposition home or self-care (01) ==
LOC: ED 02:33
PROVIDERS: Family Medicine
DX: S22.42XA Multiple fractures of ribs, left side, initial encounter for closed fracture (principal); S30.810A Abrasion of lower back and pelvis, initial encounter; B82.9 Intestinal parasitism, unspecified; E11.9 Type 2 diabetes mellitus without complications; J45.909 Unspecified asthma, uncomplicated; R82.71 Bacteriuria; W18.39XA Other fall on same level, initial encounter; Y92.009 Unspecified place in unspecified non-institutional (private) residence as the place of occurrence of the external cause; Z79.4 Long term (current) use of insulin

== ENCOUNTER 2020-10-08 | Observation (INO) | payer MEDICARE ==
[~2020-10-08] MED LIST changes: +ALBENZA200 MG PO; +ENALAPRIL20 MG PO; +LOPRESSOR25 M1 PO; +NORVASC5 M1 PO; +TRAMADOL HYDROC50 MG PO; +TRESIBA FL100 UNIT/M SC
[2020-10-08] MEDS ORDERED: FUROSEMIDE20 MG PO (14:36)
[2020-10-08 14:43] LABS: URINE BILIRUBIN - DIPSTICK NEGATIVE (NEGATIVE); URINE BLOOD DIPSTICK SMALL (NEGATIVE); URINE COLOR YELLOW; URINE GLUCOSE - DIPSTICK 100 mg/dL (NEGATIVE); URINE KETONE NEGATIVE (NEGATIVE); URINE PH 5.5 (4.5-8.0); URINE PROTEIN - DIPSTICK 30 mg/dL (NEG-TRACE); URINE UROBILINOGEN - DIPSTICK 0.2 E.U./dL (0.2)
[2020-10-08 14:45] LABS: URINE BACTERIA MODERATE hpf; URINE EPITHELIAL CELLS MODERATE EPI/hpf (0-FEW); URINE LEUK ESTERASE LARGE (NEGATIVE); URINE NITRITE - DIPSTICK NEGATIVE (Negative); URINE RBC 0-2 RBC/hpf (0-5); URINE WBC 20-50 WBC/hpf (0-5)
[2020-10-08 15:06] LABS: IMMATURE GRANULOCYTES 0.4 % (0.0-5.0); MEAN CORPUSCULAR HGB 23.8 pG CALC (26.0-32.0); NEUT# 9.98 thou/uL (2.00-7.15); RED BLOOD COUNT 4.75 mill/uL (4.20-5.60); RED CELL DISTRI WIDTH 16.9 % (11.5-15.5)
[2020-10-08 15:08] LABS: HEMATOCRIT 38.9 % (37.0-47.0); HEMOGLOBIN 11.3 g/dl (12.0-16.0); MEAN CELL VOLUME 81.9 fL CALC (80.0-100.0)
[2020-10-08 15:25] LABS: POTASSIUM 4.9 mmol/l (3.5-5.1)
[2020-10-08 15:30] LABS: CREATININE 3.3 mg/dL (0.5-1.0)
[2020-10-08 17:25] VITALS: BP 147/86
[2020-10-08 18:56] VITALS: BP 152/85
[2020-10-09 04:43] VITALS: BP 172/99
[2020-10-09 06:18] LABS: HEMATOCRIT 34.4 % (37.0-47.0); HEMOGLOBIN 10.2 g/dl (12.0-16.0); MEAN CELL VOLUME 80.4 fL CALC (80.0-100.0); MEAN CORPUSCULAR HGB 23.8 pG CALC (26.0-32.0); MEAN CORPUSCULAR HGB CONC 29.7 g/dL CAL (32.0-36.0); RED BLOOD COUNT 4.28 mill/uL (4.20-5.60); RED CELL DISTRI WIDTH 16.6 % (11.5-15.5)
[2020-10-09 07:10] VITALS: BP 160/85
[2020-10-09 07:22] LABS: CREATININE 2.9 mg/dL (0.5-1.0); MAGNESIUM 1.8 mg/dL (1.6-2.3)
[2020-10-09 15:32] VITALS: BP 148/87
[2020-10-09 19:36] VITALS: BP 115/78
[2020-10-10 04:00] VITALS: BP 151/79
[2020-10-10 06:08] LABS: HEMATOCRIT 32.3 % (37.0-47.0); HEMOGLOBIN 9.4 g/dl (12.0-16.0); MEAN CELL VOLUME 80.8 fL CALC (80.0-100.0); MEAN CORPUSCULAR HGB 23.5 pG CALC (26.0-32.0); MEAN CORPUSCULAR HGB CONC 29.1 g/dL CAL (32.0-36.0); RED CELL DISTRI WIDTH 16.8 % (11.5-15.5)
[2020-10-10 06:37] LABS: CREATININE 2.7 mg/dL (0.5-1.0)
[2020-10-10 06:44] LABS: POTASSIUM 5.4 mmol/l (3.5-5.1)
[2020-10-10 07:40] VITALS: BP 157/79
[2020-10-10] MEDS ORDERED: KEFLEX500 MG PO (09:55)
== END 2020-10-10 11:41 | disposition home health service (06) ==
PROVIDERS: Family Medicine; Nurse Practitioner; ADMIT Internal Medicine
DX: N39.0 Urinary tract infection, site not specified (principal); K59.00 Constipation, unspecified; N17.9 Acute kidney failure, unspecified; E86.0 Dehydration; I12.9 Hypertensive chronic kidney disease with stage 1 through stage 4 chronic kidney disease, or unspecified chronic kidney disease; E11.22 Type 2 diabetes mellitus with diabetic chronic kidney disease; N18.9 Chronic kidney disease, unspecified; I25.10 Atherosclerotic heart disease of native coronary artery without angina pectoris; J45.909 Unspecified asthma, uncomplicated; B95.1 Streptococcus, group B, as the cause of diseases classified elsewhere; Z79.4 Long term (current) use of insulin; Z86.79 Personal history of other diseases of the circulatory system; Z20.822 Contact with and (suspected) exposure to COVID-19
CPT/HCPCS: G0378